=== PATIENT | male | born 1975 | race Caucasian/White ===

== ENCOUNTER 2022-01-27 08:00 | Outpatient (CLI) | payer MEDICAID, OTHER ==
--- NOTE | 2022-01-27 19:51 | XRAY Report ---
PROCEDURE: Knee 2 View RT INDICATIONS: RT KNEE PAIN TECHNIQUE: 2 views of the right knee(s) were acquired. COMPARISON: None. FINDINGS: Bones: No fractures or dislocations. No suspicious bony lesions. Mild medial compartment joint spa ce narrowing. Patella unremarkable. Soft tissues: No joint effusion. No suspicious soft tissue calcifications. IMPRESSION: Mild medial compartment joint space narrowing without fracture or foreign body Reviewed by: Valente Berman MD on 01/27/2022 6:49 PM AKDT Approved by: Valente Berman MD on 01/27/2022 6:49 PM AKDT Station ID: [id number]
== END 2022-01-27 23:59 | disposition home or self-care (01) ==
LOC: DI.N 08:00
PROVIDERS: ATTEND Nurse Practitioner
DX: M17.11 Unilateral primary osteoarthritis, right knee (principal)